=== PATIENT | female | born 1945 | race Asian ===

== ENCOUNTER 2024-07-31 21:56 | Emergency (ER) | payer OTHER ==
[2024-07-31 22:08] VITALS: BP 163/92; PULSE 107; RESP 18; TEMP 98.4; BMI 33.4
[2024-07-31] MEDS ORDERED: CEPHALEXIN MONOHYDRATE 500 MG CAPSULE (UD) ONE (22:50)
[2024-07-31] MEDS: CEPHALEXIN MONOHYDRATE 500 MG CAPSULE (UD) PO ONE (22:57)
[2024-07-31 22:59] LABS: PH,URINE 6.5 (5.0-8.0); URINE APPEARANCE CLEAR; URINE BILIRUBIN NEGATIVE (NEGATIVE); URINE COLOR YELLOW; URINE GLUCOSE (UA) NEGATIVE (NEGATIVE); URINE KETONE NEGATIVE (NEGATIVE); URINE LEUK ESTERASE NEGATIVE (NEGATIVE); URINE NITRITE NEGATIVE (NEGATIVE); URINE PROTEIN NEGATIVE (NEGATIVE); URINE UROBILINOGEN 0.2 mg/dL (0.2-1.0)
== END 2024-07-31 23:12 | disposition home or self-care (01) ==
LOC: JER 21:56
DX: L03.116 Cellulitis of left lower limb (principal); M79.89 Other specified soft tissue disorders
CPT/HCPCS: 81003; 87086; 99283-25